=== PATIENT | female | born 1950 | race Caucasian/White ===

== ENCOUNTER → 2018-04-14 | Outpatient (CLI) | payer MEDICARE, OTHER | LOC: M.RAD 11:08 | DX: Z12.31 Encounter for screening mammogram for malignant neoplasm of breast (principal) ==

== ENCOUNTER → 2019-04-20 | Outpatient (CLI) | payer MEDICARE, OTHER | LOC: M.RAD 10:00 | DX: Z12.31 Encounter for screening mammogram for malignant neoplasm of breast (principal) ==

== ENCOUNTER → 2020-05-02 | Outpatient (CLI) | payer MEDICARE, OTHER | LOC: M.RAD 09:48 | PROVIDERS: ATTEND Internal Medicine | DX: Z12.31 Encounter for screening mammogram for malignant neoplasm of breast (principal) ==

== ENCOUNTER 2021-04-06 08:58 | Emergency (ER) | payer MEDICARE, OTHER ==
[~2021-04-06] VITALS: Ht 154.9 cm; Wt 73.5 kg
[2021-04-06] MEDS ORDERED: OMEPRAZOLE 20 M20 M1 PO (09:13)
[2021-04-06] MEDS ORDERED: AMLODIPINE BESY10 MG PO (09:13)
[2021-04-06] MEDS ORDERED: LISINOPRIL-HCT1 EAC2 PO (09:13)
[2021-04-06] MEDS ORDERED: DICLOFENAC SOD50 M1 PO (09:14)
[2021-04-06] MEDS ORDERED: GRALISE600 MG PO (09:14)
[2021-04-06] MEDS ORDERED: TRAMADOL 50 MG50 MG PO (09:14)
[2021-04-06] MEDS ORDERED: LIPITOR40 MG PO (09:15)
[2021-04-06] MEDS ORDERED: ALLOPURINOL 30300 M1 PO (09:15)
[2021-04-06] MEDS ORDERED: FISH OIL 1,001000 M3 (09:16)
[2021-04-06] MEDS ORDERED: ZINC50 M3 PO (09:16)
[2021-04-06] MEDS ORDERED: KRILL OIL 3501 EACH PO (09:16)
[2021-04-06] MEDS ORDERED: SUPER THERAVIT1 EACH PO (09:17)
[2021-04-06] MEDS ORDERED: METFORMIN HCL500 M3 PO (09:17)
[2021-04-06] MEDS ORDERED: EXPECTORANT200 M1 PO (09:17)
[2021-04-06] MEDS ORDERED: VITAMIN D310 MC2 PO (09:18)
[2021-04-06] MEDS ORDERED: FENOFIBRATE150 MG PO (09:18)
[2021-04-06] MEDS ORDERED: IRON18 M1 PO (09:18)
[2021-04-06] MEDS ORDERED: KEFLEX250 MG PO (09:58)
[2021-04-06 10:27] VITALS: BP 140/59
== END 2021-04-06 10:29 | disposition home or self-care (01) ==
LOC: M.ERS 08:58
DX: L03.113 Cellulitis of right upper limb (principal); Z98.890 Other specified postprocedural states; Z85.3 Personal history of malignant neoplasm of breast; Z79.899 Other long term (current) drug therapy

== ENCOUNTER → 2021-05-15 | Outpatient (CLI) | payer MEDICARE, OTHER ==
[~2021-05-15] MED LIST: ALLOPURINOL 30300 M1 PO; AMLODIPINE BESY10 MG PO; DICLOFENAC SOD50 M1 PO; EXPECTORANT200 M1 PO; FENOFIBRATE150 MG PO; FISH OIL 1,001000 M3; GRALISE600 MG PO; IRON18 M1 PO; KEFLEX250 MG PO; KRILL OIL 3501 EACH PO; LIPITOR40 MG PO; LISINOPRIL-HCT1 EAC2 PO; METFORMIN HCL500 M3 PO; OMEPRAZOLE 20 M20 M1 PO; SUPER THERAVIT1 EACH PO; TRAMADOL 50 MG50 MG PO; VITAMIN D310 MC2 PO; ZINC50 M3 PO
== END ==
LOC: M.RAD 09:10
PROVIDERS: ATTEND Internal Medicine
DX: Z12.31 Encounter for screening mammogram for malignant neoplasm of breast (principal); Z85.3 Personal history of malignant neoplasm of breast